=== PATIENT | female | born 1985 | race Caucasian/White ===

== ENCOUNTER 2017-05-12 07:27 | Day surgery (SDC) | payer OTHER ==
[~2017-05-12] VITALS: Ht 160 cm; Wt 62.0 kg
[~2017-05-12 07:27] MED LIST: BUPR75TA5 PO; CYCL-259 PO; EPINEPHRINE 1 MG/ML, 1ML ONE; LIDOCAINE/PF 1%, 30ML ONE; METH750T87 PO; NONE PER PT; OXYC-302 PO
[2017-05-12] MEDS ORDERED: MIDAZOLAM 1 MG/ML, 2ML ONE (07:54)
[2017-05-12] MEDS ORDERED: FENTANYL PF 250 MCG/5ML ONE (07:54)
[2017-05-12] MEDS ORDERED: ONDANSETRON 2MG/ML, 2ML IVPush PRN (08:00)
[2017-05-12] MEDS ORDERED: LABETALOL 5MG/ML, 20ML IV PRN (08:00)
[2017-05-12] MEDS ORDERED: HYDROmorphone 1 MG/ML, 1ML IV PRN (08:00)
[2017-05-12] MEDS ORDERED: FENTANYL PF 100 MCG/2ML IV PRN (08:00)
[2017-05-12] MEDS ORDERED: ACETAMINOPHEN 325 MG TABLET PO PRN (08:00)
[2017-05-12] MEDS ORDERED: MEPERIDINE/PF 25MG/0.5ML IVPush PRN (08:00)
[2017-05-12] MEDS ORDERED: OXYcodone 5 MG/5 ML ORAL.SOL UDC PO PRN (08:00)
[2017-05-12] MEDS ORDERED: PROMETHAZINE 25 MG/ML, 1ML IV PRN (08:00)
[2017-05-12 08:01] VITALS: BP 103/71
[2017-05-12] MEDS ORDERED: EPINEPHRINE 1 MG/ML, 1ML ONE (08:17)
[2017-05-12] MEDS ORDERED: LIDOCAINE/PF 1.5%-EPI 1:200K, 30ML ONE (08:17)
[2017-05-12 08:45] LABS: HCG UR OBC PASS
[2017-05-12] MEDS ORDERED: LACTATED RINGERS 1,000 ML IV SCH (08:48)
[2017-05-12 08:49] LABS: BLOOD UREA NITROGEN 20 mg/dL (7-18)
[2017-05-12] MEDS ORDERED: ONDANSETRON 2MG/ML, 2ML ONE (09:24)
[2017-05-12] MEDS ORDERED: PROPOFOL 10 MG/ML, 20ML ONE (09:24)
[2017-05-12] MEDS ORDERED: ROCURONIUM 10 MG/ML ONE (09:24)
[2017-05-12] MEDS ORDERED: DEXAMETHASONE 4 MG/ML, 1ML ONE (09:24)
[2017-05-12] MEDS ORDERED: OXYcodone 5 MG/5 ML ORAL.SOL UDC ONE (10:35)
[2017-05-12] MEDS ORDERED: ACETAMINOPHEN 650 MG/20.3 ML UDC ONE (10:36)
[2017-05-12] MEDS ORDERED: ACETAMINOPHEN 325 MG TABLET ONE (10:36)
[2017-05-12] MEDS ORDERED: FENTANYL PF 100 MCG/2ML ONE (11:08)
== END 2017-05-12 12:40 | disposition home or self-care (01) ==
LOC: OUT 07:27
PROVIDERS: ATTEND Obstetrics & Gynecology Gynecology
DX: N80.3 Endometriosis of pelvic peritoneum (principal); Z98.890 Other specified postprocedural states; F17.210 Nicotine dependence, cigarettes, uncomplicated; E28.2 Polycystic ovarian syndrome
CPT/HCPCS: 36415; 58662; 80048; 81003; 81025; 85025; 88304; J1100; J2250; J2405; J2704; J3010; J3490; J7120; J0171

== ENCOUNTER 2019-10-11 05:48 | Day surgery (SDC) | payer OTHER ==
[~2019-10-11] VITALS: Ht 157.5 cm; Wt 66.6 kg
[~2019-10-11 05:48] MED LIST changes: +BUPR150T13 PO; -EPINEPHRINE 1 MG/ML, 1ML ONE; -LIDOCAINE/PF 1%, 30ML ONE; +MULT-658 PO
[2019-10-11] MEDS ORDERED: LACTATED RINGERS 1,000 ML IV SCH (06:13)
[2019-10-11 06:16] VITALS: BP 122/76
[2019-10-11 06:47] LABS: BASOPHILS # (AUTO) 0.09 x10^3/uL (0-0.1); BASOPHILS % (AUTO) 1 % (0-1); EOSINOPHILS # (AUTO) 0.31 x10^3/uL (0-0.4); EOSINOPHILS % (AUTO) 5 % (1-7); LYMPHOCYTES # (AUTO) 2.99 x10^3/uL (1-3.4); LYMPHOCYTES % (AUTO) 45 % (22-44); MD NO; MEAN CORPUSCULAR HEMOGLOBIN 31.5 pg (27.0-34.8); MEAN CORPUSCULAR HGB CONC 33.5 g/dL (32.4-35.8); MEAN CORPUSCULAR VOLUME 94.2 fL (80-100); MEAN PLATELET VOLUME 7.3 fL (7.4-10.4); MONOCYTES # (AUTO) 0.53 x10^3/uL (0.2-0.8); MONOCYTES % (AUTO) 8 % (2-9); NEUTROPHILS # (AUTO) 2.74 x10^3/uL (1.8-6.8); NEUTROPHILS % (AUTO) 41 % (42-75); PLATELET COUNT 274 x10^3/uL (130-400); RED BLOOD COUNT 4.58 x10^6/uL (3.82-5.3); RED CELL DISTRIBUTION WIDTH 12.2 % (9.6-15.2)
[2019-10-11] MEDS ORDERED: INDIGO CARMINE 0.8%, 5ML ONE (06:57)
[2019-10-11] MEDS ORDERED: LIDOCAINE 1%-EPI 1:100K, 20ML ONE (06:57)
[2019-10-11 06:58] LABS: ALBUMIN 4.3 g/dL (3.4-5.0); ANION GAP 5 mmol/L (5-15); CHLORIDE 110 mmol/L (98-107)
[2019-10-11 07:01] LABS: ALANINE AMINOTRANSFERASE 25 U/L (12-78); ALKALINE PHOSPHATASE 52 U/L (45-117); BILIRUBIN,TOTAL 0.7 mg/dL (0.2-1.0); TOTAL PROTEIN 7.3 g/dL (6.4-8.2)
[2019-10-11] MEDS ORDERED: MIDAZOLAM 1 MG/ML, 2ML ONE (07:15)
[2019-10-11] MEDS ORDERED: FENTANYL PF 250 MCG/5ML ONE (07:16)
[2019-10-11] MEDS ORDERED: PROPOFOL 10 MG/ML, 20ML ONE (07:17)
[2019-10-11] MEDS ORDERED: CEFAZOLIN 1,000 MG ONE ×2 (07:18→07:19)
[2019-10-11] MEDS ORDERED: ROCURONIUM 10MG/ML,5ML ONE (07:18)
[2019-10-11] MEDS ORDERED: LIDOCAINE-MPF 2% ,5ML ONE (07:19)
[2019-10-11] MEDS ORDERED: DEXAMETHASONE 4 MG/ML, 1ML ONE ×2 (07:19)
[2019-10-11] MEDS ORDERED: GABAPENTIN 300 MG CAPSULE PO ONE (07:30)
[2019-10-11] MEDS ORDERED: ONDANSETRON ODT 8 MG PO ONE (07:30)
[2019-10-11] MEDS ORDERED: ACETAMINOPHEN 500 MG TABLET PO ONE (07:30)
[2019-10-11] MEDS ORDERED: KETOROLAC 30 MG/1 ML ONE (07:49)
[2019-10-11] MEDS ORDERED: METOCLOPRAMIDE 5 MG/ML, 2ML IV PRN (08:00)
[2019-10-11] MEDS ORDERED: HYDROmorphone 2 MG/ML, 1ML IVPush PRN (08:00)
[2019-10-11] MEDS ORDERED: LABETALOL 5MG/ML, 20ML IV PRN (08:00)
[2019-10-11] MEDS ORDERED: DIPHENHYDRAMINE 50 MG/ML, 1ML IVPush PRN (08:00)
[2019-10-11] MEDS ORDERED: MEPERIDINE/PF 25MG/ML,1ML IVPush PRN (08:00)
[2019-10-11] MEDS ORDERED: ONDANSETRON 2MG/ML, 2ML IV PRN (08:00)
[2019-10-11] MEDS ORDERED: hydrALAzine 20 MG/ML, 1ML IV PRN (08:00)
[2019-10-11] MEDS ORDERED: FENTANYL PF 100 MCG/2ML ONE ×2 (08:41→09:10)
[2019-10-11] MEDS: FENTANYL PF 100 MCG/2ML IV PRN ×6 (08:42→09:56)
[2019-10-11] MEDS ORDERED: LORazepam 2 MG/ML, 1ML ONE (09:06)
[2019-10-11] MEDS ORDERED: OXYcodone 5 MG/5 ML ORAL.SOL UDC ONE ×2 (09:10→09:45)
[2019-10-11] MEDS: OXYcodone 5 MG/5 ML ORAL.SOL UDC PO PRN ×2 (09:12→09:46)
[2019-10-11] MEDS: LORazepam 2 MG/ML, 1ML IVPush PRN ×2 (09:12→09:35)
[2019-10-11] MEDS ORDERED: MEPERIDINE/PF 25MG/ML,1ML ONE (09:22)
[2019-10-11] MEDS ORDERED: SCOPOLAMINE PATCH, 1.5MG PATCH.TD72 TD ONE ×2 (14:35→15:00)
[2019-10-11] MEDS ORDERED: HYDROmorphone 1 MG/ML, 1ML VIAL ONE (14:38)
[2019-10-11] MEDS ORDERED: HYDROmorphone 1 MG/ML, 1ML INJ IV ONE (15:00)
[2019-10-11] MEDS ORDERED: NEOSTIGMINE 1 MG/ML, 10ML ONE (15:35)
[2019-10-11] MEDS ORDERED: GLYCOPYRROLATE 0.2MG/1ML, 5ML ONE (15:35)
[2019-10-11] MEDS ORDERED: OXYcodone/APAP 7.5/325MG TABLET PO PRN (16:30)
== END 2019-10-11 17:15 | disposition home or self-care (01) ==
LOC: OUT 05:48
PROVIDERS: ATTEND Obstetrics & Gynecology Gynecology
DX: N92.0 Excessive and frequent menstruation with regular cycle (principal); N94.5 Secondary dysmenorrhea; N80.0 Endometriosis of uterus; N94.12 Deep dyspareunia
CPT/HCPCS: 36415; 58262; 80053; 81025; 85014; 85025; 88307; J0690; J1100; J1885; J2060; J2175; J2250; J2405; J2704; J2710; J3010; J3490; J7120; Q0162